=== PATIENT | female | born 1990 | race Caucasian/White ===

== ENCOUNTER 2016-05-11 11:00 | Emergency (ER) | payer OTHER ==
[2016-05-11 12:48] LABS: HEMOGLOBIN 14.2 gm/dl (12.3-15.3); RED BLOOD COUNT 4.9 M/UL (4.00-5.10); WHITE BLOOD COUNT 7.2 K/UL (4.5-11.0)
[2016-05-11 13:09] LABS: BUN/CREATININE RATIO 10 (0-10)
== END 2016-05-11 17:53 | disposition home or self-care (01) ==
LOC: ER1 11:00
PROVIDERS: Physician Assistant
DX: O23.42 Unspecified infection of urinary tract in pregnancy, second trimester (principal); Z3A.14 14 weeks gestation of pregnancy
CPT/HCPCS: 36415; 76801; 80053; 81001; 82150; 83690; 84702; 85025; 87210; 96360; 96361; 99284; J3411; J7030; Q0163